=== PATIENT | female | born 2000 | race Two or more races ===

== ENCOUNTER 2021-01-15 20:40 | Emergency (ER) | payer SELFPAY ==
[~2021-01-15] VITALS: Ht 165.1 cm; Wt 68.0 kg
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
[2021-01-15] MEDS ORDERED: ONDANSETRON 4 MG TAB.RAPDIS ONE (21:11)
[2021-01-15] MEDS ORDERED: OMEP40CA21 PO (21:18)
[2021-01-15] MEDS ORDERED: ONDA4TAB5 PO (21:18)
--- NOTE | 2021-01-15 21:24 | NUR ---
Patient discharged to home in stable condition. Written and verbal after care instructions given. Patient verbalizes understanding of instruction. PT ambulatory with a steady gait
[2021-01-15 21:28] VITALS: BP 112/79
[2021-01-15] MEDS ORDERED: ONDANSETRON 4 MG TAB.RAPDIS SL ONE (21:30)
== END 2021-01-15 21:24 | disposition home or self-care (01) ==
LOC: ER 20:44
DX: R07.89 Other chest pain (principal); F17.210 Nicotine dependence, cigarettes, uncomplicated; Z98.890 Other specified postprocedural states
CPT/HCPCS: 93005; 99283; 99406; Q0162